=== PATIENT | male | born 1955 | race Caucasian/White ===

== ENCOUNTER → 2016-03-18 | Day surgery (SDC) | payer BC ==
[~2016-03-18] VITALS: Ht 162.6 cm; Wt 68.5 kg
[2016-03-18] VITALS (8 sets, daily range): BP systolic 105–133; BP diastolic 66–87
[~2016-03-18] MED LIST: DiphenhydrAMINE 50mg/ml Inj IVP PRN; LR 1000ml 1,000 ML IVLG SCH; Labetalol 5mg/ml 20ml vial IV PRN; OMEPRAZOLE40 M1 ORAL
--- NOTE | 2016-03-18 10:21 | Anethesia Preoperative Eval ---
Anesthesia Pre-op PMH/ROS General Date of Evaluation: Mar 18, 2016 Anesthesiologist: James ASA Score: ASA 2 Mallampati Score Class I : Soft palate, uvula, fauces, pillars visible Class II: Soft palate, uvula, fauces visible Class III: Soft palate, base of uvula visible Class IV: Only hard plate visible Mallampati Classification: Class II Surgeon: Curtis Diagnosis: GERD/screening Surgical Procedure: EGD and colonosscopy Anesthesia History: none Social History: smoking, alcohol use - h/o alcohol abue Family History: no anesthesia problems Allergies: Coded Allergies: Whole Milk (Verified Adverse Reaction, Intermediate, 03/18/16) ABD CRAMPS AND DIARRHEA Medications: see eMAR Past Medical History Cardiovascular: Denies: CAD, HTN, [place], arrhythmia, other, valve dz Pulmonary: Denies: COPD, YUAN, asthma, other Gastrointestinal/Genitourinary: Reports: GERD, Denies: CRI, ESRD, other Neurologic/Psychiatric: Reports: other - seizurs, Denies: CVA, TIA, dementia, depression/anxiety Endocrine: Denies: DM, hypothyroidism, other, steroids HEENT: Denies: LOV[place]OCK (L), LOVELOCK (R), cataract (L), cataract (R), glaucoma, other Hematology/Immune: Denies: DVT, anemia, bleeding disorder, other Musculoskeletal/Integumentary: Denies: DDD, DJD, OA, RA, edema, other PSxH Narrative: RIHR Anesthesia Pre-op Phys. Exam Physician Exam Last Vital Signs Date Time Temp Pulse Resp B/P Pulse Ox O2 Delivery O2 Flow Rate FiO2 03/18/16 09:26 97.5 77 20 133/84 96 Room Air Constitutional: NAD Cardiovascular: RRR Respiratory: CTA Airway Exam Mallampati Score: Class II MO: full ROM: full Teeth: intact Anesthesia Pre-op A/P Labs see chart Studies Pre-op Studies: EKG - sr Risk Assessment & Plan Assessment: ASA II Plan: MAC Status Change Before Surgery: No Pre-Antibiotics Drug: N/A ENRIKE GLOVER M.D. Mar 18, 2016 10:20
--- NOTE | 2016-03-18 10:24 | Immediate Post-Op Evaluation ---
Immediate Post-Op Evalulation Immediate Post-Op Evalulation Procedure: EGD and colonoscopy Date of Evaluation: Mar 18, 2016 Time of Evaluation: 11:18 IV Fluids: 500 Blood Products: 0 Estimated Blood Loss: 0 Urinary Output: 0 Blood Pressure Systolic: 105 Blood Pressure Diastolic: 73 Pulse Rate: 78 Respiratory Rate: 17 O2 Sat by Pulse Oximetry: 96 Temperature (Fahrenheit): 97.4 Pain Score (1-10): 0 Nausea: No Vomiting: No Complications 0 Patient Status: awake, reacts, patent, none Hydration Status: adequate Drug: N/A ENRIKE GLOVER M.D. Mar 18, 2016 10:24
--- NOTE | 2016-03-18 10:28 | 48 Hour Post Anesthesia Eval ---
Post Anesthesia Evaluation Procedure: EGD and colonoscopy Date of Evaluation: Mar 18, 2016 Blood Pressure Systolic: 109 0: 77 Pulse Rate: 76 Respiratory Rate: 16 O2 Sat by Pulse Oximetry: 99 Airway: patent Nausea: No Vomiting: No Pain Intensity: 0 Hydration Status: adequate Cardiopulmonary Status: at baseline Mental Status/LOC: patient returned to baseline Post-Anesthesia Complications: 0 Follow-up care needed: ready to discharge ENRIKE GLOVER M.D. Mar 18, 2016 10:28
--- NOTE | 2016-03-18 10:44 | Pre-Procedure Note/Attestation ---
Pre-Procedure Note/Attestation Complete Prior to Procedure Planned Procedure: not applicable Procedure Narrative: egd/colonoscopy Indications for Procedure Pre-Operative Diagnosis: gerd, screening colon Attestation I attest that I discussed the nature of the procedure; its benefits; risks and complications; and alternatives (and the risks and benefits of such alternatives ), prior to the procedure, with the patient (or the patient's legal transportation services representative). I attest that, if there was a reasonable possibility of needing a blood transfusion, the patient (or the patient's legal transportation services representative) was given the [facility] standardized written summary, pursuant to the [place] Boris Blood Safety Act ([place] Health and Safety Code # 1645, as amended). I attest that I re-evaluated the patient just prior to the surgery and that there has been no change in the patient's H&P, except as documented below: FLO SOTO Mar 18, 2016 10:44
--- NOTE | 2016-03-18 10:45 | Short Stay Surgery H&P ---
History of Present Illness History of Present Illness Chief Complaint see recent consult HPI Gold Rivas is a 60 year old male who was admitted on for Gerd, Colon Screening Patient History Allergies: Coded Allergies: Whole Milk (Verified Adverse Reaction, Intermediate, 03/18/16) ABD CRAMPS AND DIARRHEA PAST MEDICAL HISTORY: Past Surgeries: Social History: Medication History Scheduled Omeprazole (Omeprazole), 40 MG ORAL DAILY, (Reported) Physical Exam Vital Signs Last Vital Signs Date Time Temp Pulse Resp B/P Pulse Ox O2 Delivery O2 Flow Rate FiO2 03/18/16 09:26 97.5 77 20 133/84 96 Room Air Plan Attestation Are the patient's medical conditions optimized for surgery? FLO SOTO Mar 18, 2016 10:45
--- NOTE | 2016-03-18 11:05 | Endoscopy Procedure Note ---
Endoscopy Procedure Note Indication for Procedure: gerd,screening colon Procedures Performed: EGD, colonoscopy Operative Findings/Diagnosis: gastritis,hemorrhoids Specimen: yes Pt Tolerated Procedure Well: Yes Estimated Blood Loss: none Anesthesiologist: radha Anesthesia: MAC Implant(s) used?: No 50 yrs or older w/o bx or poly: No 10yrs. F/U not recommended: Yes If not recommended, why?: Above average risk 10 yrs. F/U needed: Yes 18 years or older w/prev. colo: No FLO SOTO Mar 18, 2016 11:05
--- NOTE | 2016-03-18 19:57 | Procedure Note ---
DATE OF PROCEDURE: 03/18/2016 SURGEON: Sidney Acevedo M.D. PROCEDURE: Upper endoscopy with biopsy and colonoscopy with biopsy. ANESTHESIA: Dr. Sawant. INSTRUMENT: Olympus adult flexible endoscope and colonoscope. INDICATION: Chronic GERD and screening colonoscopy evaluation. REASON FOR PROCEDURE: The procedure, risks, benefits, and possible consequences, including hemorrhage, aspiration, perforation and infection, and alternative treatments, were explained to the patient/legal guardian by Dr. Sidney Acevedo and the patient/legal guardian understood and accepted these risks. PROCEDURE: After informed consent was obtained and the patient was adequately sedated, Olympus upper endoscope was advanced from mouth into the second portion of the duodenum and retroflexion was performed of the stomach. The patient had evidence of diffuse gastritis. Random biopsy from antrum of the stomach was obtained to rule out H. pylori infection. The patient also has evidence of small hiatal hernia. At this time, the upper endoscope was retrieved and patient was turned over for colonoscopy. First, a rectal exam was performed, which shows positive for internal hemorrhoid. Then, the scope was advanced from the rectum into the cecum, documented by appendiceal orifice, ileocecal valve, and right upper quadrant palpation. Quality of prep was very good. Then, the scope was advanced into the terminal ileum. The patient had normal terminal ileum. There were two diminutive polyps in the rectosigmoid area, most probably hypoplastic polyp removed with the cold biopsy forceps technique. The patient had a scattered diverticulosis in both the right and left colon was more than left compared to right. Retroflexion of rectum showed evidence of internal hemorrhoids. The patient tolerated the procedure without any complication. SUMMARY OF FINDINGS: 1. Gastritis, status post biopsy. 2. Small hiatal hernia. 3. Internal hemorrhoids. 4. Diverticulosis . 5. Two rectosigmoid polyps removed. RECOMMENDATIONS: Follow up biopsies and treat accordingly. Sidney Acevedo M.D. DR: Carlos JOB#: [id number] CC:
--- NOTE | 2016-03-19 17:45 | Cardiology Report ---
APPROVED REPORT EKG Measurement Heart [id number] Normal sinus rhythm Normal ECG
== END | disposition home or self-care (01) ==
LOC: GAS 08:43
DX: Z12.11 Encounter for screening for malignant neoplasm of colon (principal); D12.7 Benign neoplasm of rectosigmoid junction; K64.8 Other hemorrhoids; K57.30 Diverticulosis of large intestine without perforation or abscess without bleeding; K21.9 Gastro-esophageal reflux disease without esophagitis; K29.50 Unspecified chronic gastritis without bleeding; K44.9 Diaphragmatic hernia without obstruction or gangrene; R56.9 Unspecified convulsions; Z91.011 Allergy to milk products
CPT/HCPCS: 93005; 94003; 94150

== ENCOUNTER → 2016-04-01 | Outpatient (CLI) | payer BC ==
[~2016-04-01] MED LIST changes: -DiphenhydrAMINE 50mg/ml Inj IVP PRN; -LR 1000ml 1,000 ML IVLG SCH; -Labetalol 5mg/ml 20ml vial IV PRN
[2016-04-01 13:24] VITALS: BP 123/83
--- NOTE | 2016-04-01 14:06 | GI Progress Note ---
Assessment/Plan Problems: (1) Abdominal bloating ICD Codes: R14.0 - Abdominal distension (gaseous) SNOMED: 210401392 (2) Abdominal pain ICD Codes: R10.9 - Unspecified abdominal pain SNOMED: 05058125 (3) GERD (gastroesophageal reflux disease) ICD Codes: K21.9 - Gastro-esophageal reflux disease without esophagitis SNOMED: 400959008 Status: stable Status Narrative Seen with Dr. Acevedo. Assessment/Plan H. Pylori negative abdominal bloating >> ordered breath test pending prior auth RTC after BT repeat colon x 5 years Subjective Subjective pt continues to have LUQ abdominal pain >> only left side after meal. - eats red meat everyday - occ late night meal c/o of abdominal bloating hx of GERD >> omeprazole 40 mg daily Objective Last 24 Hour Vital Signs Date Time Temp Pulse Resp B/P Pulse Ox O2 Delivery O2 Flow Rate FiO2 04/01/16 13:24 98.2 87 16 123/83 General Appearance: no apparent distress, alert Cardiovascular: normal rate Respiratory/Chest: normal breath sounds, no respiratory distress Abdominal Exam: normal bowel sounds, non tender, soft Extremities: normal range of motion Objective Endoscopy Procedure Note Indication for Procedure: gerd,screening colon Procedures Performed: EGD, colonoscopy Operative Findings/Diagnosis: gastritis,hemorrhoids FLO ACEVEDO - Mar 18, 2016 11:05 stomach biopsy >> H. Pylori negative Samina Reagan N.P. Apr 01, 2016 14:06
== END | disposition home or self-care (01) ==
LOC: PAN 12:20
DX: R10.9 Unspecified abdominal pain (principal); R14.0 Abdominal distension (gaseous); K21.9 Gastro-esophageal reflux disease without esophagitis; K29.70 Gastritis, unspecified, without bleeding; K64.9 Unspecified hemorrhoids
CPT/HCPCS: 99211

== ENCOUNTER → 2016-05-23 | Outpatient (CLI) | payer BC ==
--- NOTE | 2016-06-03 15:32 | General Progress Note ---
Assessment/Plan Problem List: (1) Gastritis ICD Codes: K29.70 - Gastritis, unspecified, without bleeding SNOMED: 5054487 (2) SIBO (3) Diverticulosis ICD Codes: K57.90 - Diverticulosis of intestine, part unspecified, without perforation or abscess without bleeding SNOMED: 661688287 (4) Hepatomegaly ICD Codes: R16.0 - Hepatomegaly, not elsewhere classified SNOMED: 83964862 (5) Abdominal bloating ICD Codes: R14.0 - Abdominal distension (gaseous) SNOMED: 475700497 (6) GERD (gastroesophageal reflux disease) ICD Codes: K21.9 - Gastro-esophageal reflux disease without esophagitis SNOMED: 929363559 (7) Abdominal pain ICD Codes: R10.9 - Unspecified abdominal pain SNOMED: 80801161 Assessment/Plan xifaxan repeat colon in 2022 Subjective ROS Limited/Unobtainable: Yes Allergies: Coded Allergies: Whole Milk (Verified Adverse Reaction, Intermediate, 03/18/16) ABD CRAMPS AND DIARRHEA Subjective no pain Objective General Appearance: alert EENT: normal ENT inspection Neck: supple Cardiovascular: normal rate Respiratory/Chest: lungs clear Abdomen: normal bowel sounds, non tender, soft Extremities: non-tender FLO SOTO Jun 03, 2016 15:32
== END | disposition home or self-care (01) ==
LOC: PAN 14:15
DX: K29.70 Gastritis, unspecified, without bleeding (principal); K57.90 Diverticulosis of intestine, part unspecified, without perforation or abscess without bleeding; R16.0 Hepatomegaly, not elsewhere classified; R14.0 Abdominal distension (gaseous); K21.9 Gastro-esophageal reflux disease without esophagitis; R10.9 Unspecified abdominal pain; Z91.011 Allergy to milk products
CPT/HCPCS: 99211